=== PATIENT | female | born 1945 | race Two or more races ===

== ENCOUNTER 2023-07-16 13:04 | Inpatient (IN) | payer OTHER, MEDICAID ==
[~2023-07-16] VITALS: Ht 157.5 cm; Wt 72.5 kg
[2023-07-16] MEDS: EPINEPHrine HCL 1 MG/10 ML SYRG ONE (13:24)
[2023-07-16] MEDS: SODIUM BICARB 8.4% 50Meq/50ml SYR Vial IV ONE (13:25)
[2023-07-16 13:26] VITALS: PULSE 67; RESP 12; O2SAT 98
[2023-07-16 14:08] LABS: Basophils # (auto) 0 10 ^3/uL (0-0.2); Basophils % (auto) 0.9 % (0.0-2.0); Eosinophils # (auto) 0.1 10 ^3/uL (0-0.8); Hematocrit 32.5 % (36.0-46.0); Hemoglobin 10.7 g/dL (12.2-16.2); Lymphocytes # (auto) 0.6 10 ^3/uL (0.4-5.4); Lymphocytes % (auto) 14.1 % (10.0-50.0); Mean Corpuscular Hemoglobin 32.6 pg (28.0-32.0); Mean Corpuscular Volume 98.7 fL (80.0-100.0); Monocytes # (auto) 0.3 10 ^3/uL (0-1.3); Monocytes % (auto) 6.3 % (0.0-12.0); Neutrophils # (auto) 3.5 10 ^3/uL (1.6-8.6); Neutrophils % (auto) 76.7 % (37.0-80.0); Nucleated Red Blood Cells % 0.1 %; Red Blood Cells 3.29 10^6/uL (4.0-5.20); Red Cell Distribution Width 15.8 % (11.8-14.3); White Blood Cell 4.5 10^3/uL (4.4-10.8)
[2023-07-16 14:19] LABS: Alanine Aminotransferase 20 U/L (7-40); Alkaline Phosphatase 37 U/L (46-116); Anion Gap 9 (5-15); Aspartate Aminotransferase 27 U/L (13-40); BUN/Creatinine Ratio 3.8 (10.0-20.0); Bilirubin, Total 0.8 mg/dL (0.2-1.0); Blood Alcohol < 3.0 mg/dL (<10); Blood Urea Nitrogen 16 mg/dL (9-23); Calcium 8.7 mg/dL (8.5-10.1); Carbon Dioxide 26 mmol/L (20-30); Chloride 96 mmol/L (98-107); Glucose 186 mg/dL (74-106); Potassium 4.8 mmol/L (3.5-5.1); Sodium 131 mmol/L (136-145); Total Protein 6.2 g/dL (5.7-8.2)
[2023-07-16] MEDS ORDERED: CLON0.1T PO (14:46)
[2023-07-16] MEDS ORDERED: CLOP75TA70 PO (14:46)
[2023-07-16] MEDS ORDERED: GABA-1308 PO (14:46)
[2023-07-16] MEDS ORDERED: CALC667C PO (14:46)
[2023-07-16] MEDS ORDERED: SIMV40TA18 PO (14:46)
[2023-07-16] MEDS ORDERED: B-CO-6 PO (14:46)
[2023-07-16] MEDS ORDERED: FERR325T24 PO (14:46)
[2023-07-16] MEDS ORDERED: CARV25TA55 PO (14:46)
[2023-07-16] MEDS ORDERED: ESCI1TAB36 PO (14:46)
[2023-07-16] MEDS ORDERED: SEVE800T8 PO (14:46)
[2023-07-16] MEDS ORDERED: FURO40TA4 PO (14:46)
[2023-07-16] MEDS ORDERED: ONDANSETRON HCL 4 MG/2 ML VIAL IV PRN (16:45)
[2023-07-16] MEDS ORDERED: DOCUSATE SOD 100 MG CAP PO PRN (16:45)
[2023-07-16] MEDS ORDERED: LABETALOL HCL 5 MG/ML 4ML SYRINGE IV PRN (17:00)
[2023-07-16] MEDS: LABETALOL HCL 5 MG/ML 4ML SYRINGE IV ONE (17:11)
[2023-07-16] MEDS: FERROUS SULFATE 325mg EC TAB PO SCH (17:36)
[2023-07-16] MEDS: cloNIDine HCL 0.1 MG TAB PO SCH (17:38)
[2023-07-16] MEDS: CALCIUM ACETATE 667 MG CAP PO SCH (17:47)
[2023-07-16] MEDS: SEVELAMER 800 MG TAB PO SCH (18:12)
[2023-07-16 18:32] LABS: Magnesium 2.3 mg/dL (1.6-2.6)
[2023-07-16 18:33] LABS: Phosphorus 3.3 mg/dL (2.4-5.1)
[2023-07-16 19:35] VITALS: PULSE 68; RESP 18; O2SAT 99
[2023-07-16] MEDS: CARVEDILOL 12.5 MG TAB PO SCH (22:00)
[2023-07-17] MEDS: ENALAPRILAT 1.25 MG/ML-1ML VIAL IV ONE ×2 (00:21)
[2023-07-17] MEDS ORDERED: cloNIDine HCL 0.1 MG TAB PO PRN (06:15)
[2023-07-17 06:32] LABS: Basophils # (auto) 0 10 ^3/uL (0-0.2); Basophils % (auto) 0.7 % (0.0-2.0); Eosinophils # (auto) 0 10 ^3/uL (0-0.8); Eosinophils % (auto) 0.8 % (0.0-7.0); Hematocrit 29.4 % (36.0-46.0); Hemoglobin 9.8 g/dL (12.2-16.2); Lymphocytes # (auto) 0.4 10 ^3/uL (0.4-5.4); Lymphocytes % (auto) 10.1 % (10.0-50.0); Mean Corpuscular Hemoglobin 33.2 pg (28.0-32.0); Mean Corpuscular Hgb Conc. 33.5 g/dL (32.0-36.0); Monocytes # (auto) 0.4 10 ^3/uL (0-1.3); Monocytes % (auto) 9.9 % (0.0-12.0); Neutrophils # (auto) 3.4 10 ^3/uL (1.6-8.6); Neutrophils % (auto) 78.5 % (37.0-80.0); Nucleated Red Blood Cells % 0.1 %; Red Blood Cells 2.97 10^6/uL (4.0-5.20); White Blood Cell 4.3 10^3/uL (4.4-10.8)
[2023-07-17 06:46] LABS: Alanine Aminotransferase 14 U/L (7-40); Alkaline Phosphatase 33 U/L (46-116); Anion Gap 11 (5-15); Aspartate Aminotransferase 17 U/L (13-40); Blood Urea Nitrogen 16 mg/dL (9-23); Carbon Dioxide 27 mmol/L (20-30); Chloride 95 mmol/L (98-107); Glucose 80 mg/dL (74-106); Potassium 4.4 mmol/L (3.5-5.1); Sodium 133 mmol/L (136-145)
[2023-07-17 06:47] LABS: Albumin 3.7 g/dL (3.2-4.8); Bilirubin, Total 0.6 mg/dL (0.2-1.0)
[2023-07-17 08:00] VITALS: PULSE 59; RESP 18; O2SAT 99
[2023-07-17] MEDS: B-COMPLEX W/ C & FOLIC ACID(NEPHROVITE TAB) PO SCH (10:36)
[2023-07-17] MEDS: CLOPIDOGREL BISULFATE 75 MG TAB PO SCH (10:37)
[2023-07-17] MEDS: GABAPENTIN 100 MG CAP PO SCH (10:37)
[2023-07-17] MEDS: ATORVASTATIN 20 MG TAB PO SCH (10:37)
[2023-07-17] MEDS: ENOXAPARIN SOD 30 MG/0.3 ML SYRINGE SC SCH (10:38)
[2023-07-17] MEDS: FUROSEMIDE 40 MG TAB PO SCH (13:34)
[2023-07-17] MEDS: NIFEdipine ER 30 MG TAB PO SCH (13:34)
[2023-07-17] MEDS: hydrALAZINE HCL 25 MG TAB PO SCH (15:30)
[2023-07-17] MEDS: HYDROcodone-ACET 5/325MG TAB PO PRN (16:58)
[2023-07-17] MEDS: ENALAPRILAT 1.25 MG/ML-1ML VIAL IV PRN (17:04)
[2023-07-17 18:54] LABS: Chloride 95 mmol/L (98-107); Potassium 4.4 mmol/L (3.5-5.1); Sodium 132 mmol/L (136-145)
[2023-07-17 18:55] LABS: Anion Gap 11 (5-15); Carbon Dioxide 26 mmol/L (20-30)
[2023-07-17 19:00] LABS: Blood Urea Nitrogen 18 mg/dL (9-23); Glucose 90 mg/dL (74-106)
[2023-07-17 21:56] VITALS: PULSE 54; RESP 13; O2SAT 98
[2023-07-17] MEDS ORDERED: LORazepam 2MG/ML-1ML VIAL IV PRN (22:30)
[2023-07-17 23:02] LABS: Triglycerides 61 mg/dL (< 150)
[2023-07-17 23:03] LABS: LDL Cholesterol 20 mg/dL (< 100)
[2023-07-17 23:04] LABS: Cholesterol 83 mg/dL (< 200); HDL Cholesterol 45 mg/dL (40-59)
[2023-07-17 23:06] LABS: Free T4 (Free Thyroxine) 1.04 ng/dL (0.89-1.76)
[2023-07-17 23:25] LABS: Folate (Folic Acid) > 48 ng/mL (>5.38)
[2023-07-18] VITALS (8 sets, daily range): BP systolic 137–174; BP diastolic 40–54; PULSE 53–63; RESP 16–19; TEMP 97.9–98.2; O2SAT 97–100
[2023-07-18] MEDS: NIFEdipine ER 30 MG TAB PO SCH (10:12)
[2023-07-18] MEDS ORDERED: ERGO1CAP23 PO (11:44)
[2023-07-18] MEDS ORDERED: AMLO1TAB23 PO (11:44)
[2023-07-18] MEDS ORDERED: GAB100C PO (18:36)
[2023-07-19 01:00] VITALS: BP 147/66; PULSE 60; RESP 18; TEMP 98.3; O2SAT 96
[2023-07-19 05:00] VITALS: BP 129/48; PULSE 57; RESP 18; TEMP 98.5; O2SAT 94
[2023-07-19 08:00] VITALS: PULSE 58; PULSE 61; RESP 16; O2SAT 97
[2023-07-19 08:57] VITALS: BP 131/39; PULSE 58; RESP 16; TEMP 98.2; O2SAT 97
[2023-07-19] MEDS ORDERED: NIFE90TA75 PO (10:15)
[2023-07-19] MEDS ORDERED: HYDR25TA87 PO (10:15)
[2023-07-19 12:49] VITALS: BP 153/37; PULSE 54; RESP 16; TEMP 98.1; O2SAT 98
[2023-07-19 13:59] VITALS: BP 133/37; PULSE 55; TEMP 36.7
== END 2023-07-19 15:40 | disposition home or self-care (01) | DRG 682 ==
LOC: ER 13:04 → EDUNIT# 13:04 → EDBD 13:04 → TELE 20:40 → TELE-E-ADS 07-18 09:24 → TELE-EAST 07-18 23:58
PROVIDERS: ADMIT Nurse Practitioner Family; ATTEND Nurse Practitioner Acute Care
DX: I12.0 Hypertensive chronic kidney disease with stage 5 chronic kidney disease or end stage renal disease (principal); G93.41 Metabolic encephalopathy; N18.6 End stage renal disease; I16.9 Hypertensive crisis, unspecified; I69.351 Hemiplegia and hemiparesis following cerebral infarction affecting right dominant side; J96.10 Chronic respiratory failure, unspecified whether with hypoxia or hypercapnia; J44.9 Chronic obstructive pulmonary disease, unspecified; E11.22 Type 2 diabetes mellitus with diabetic chronic kidney disease; R00.1 Bradycardia, unspecified; D69.6 Thrombocytopenia, unspecified; D63.1 Anemia in chronic kidney disease; E78.5 Hyperlipidemia, unspecified; E11.65 Type 2 diabetes mellitus with hyperglycemia; Z99.2 Dependence on renal dialysis; Z90.710 Acquired absence of both cervix and uterus; Z79.02 Long term (current) use of antithrombotics/antiplatelets; Z79.899 Other long term (current) drug therapy; Z82.49 Family history of ischemic heart disease and other diseases of the circulatory system
CPT/HCPCS: 36415; 70450; 71045; 80048; 80053; 80061; 80320; 82140; 82607; 82746; 82962; 83735; 84100; 84439; 84443; 84484; 85025; 93306; 93886; 95819; 99291; G0378